=== PATIENT | male | born 1985 | race Two or more races ===

== ENCOUNTER 2016-06-26 23:27 | Inpatient (IN) | payer OTHER ==
[~2016-06-26] VITALS: Ht 175.3 cm; Wt 77.6 kg
[2016-06-26] MEDS ORDERED: ROCURONIUM BROMIDE 50 MG/5 ML IV ONE (23:41)
[2016-06-26] MEDS ORDERED: PROPOFOL 100 ML IV ONE (23:46)
[2016-06-26] MEDS ORDERED: IV SET PRIMARY 1 EA INFUS.SET MC ONE (23:46)
[2016-06-26] MEDS ORDERED: IV NS 0.9% 1,000 ML ONE (23:46)
[2016-06-26] MEDS ORDERED: ONDANSETRON HCL/PF 4 MG/2 ML VIAL ONE (23:46)
[2016-06-26] MEDS ORDERED: IV SET PRIMARY PUMP SET 1 EA INFUS.SET MC ONE (23:46)
[2016-06-26 23:54] LABS: KETONES,URINE 2+ (NEGATIVE); LEUKOCYTE ESTERASE ,URINE NEGATIVE (NEGATIVE); PH,URINE 5.5 (5.0-8.0)
[2016-06-26 23:57] LABS: ANION GAP 21 (5-14); CALCIUM, SERUM 8.6 mg/dL (8.5-10.1); CARBON DIOXIDE 21 mmol/L (21-32); CHLORIDE 101 mmol/L (98-107); CREATININE 0.8 mg/dL (0.6-1.3); GFR 112 mL/min (>60); GLUCOSE 184 mg/dL (74-106); POTASSIUM 3.8 mmol/L (3.5-5.1); SODIUM SERUM 139 mmol/L (136-145); UREA NITROGEN, BLOOD 11 mg/dL (7-18)
[2016-06-26 23:59] LABS: CANNABINOID, URINE POSITIVE (NEGATIVE); PHENCYCLIDINE SCREEN,URINE NEGATIVE (NEGATIVE)
[2016-06-27] VITALS (15 sets, daily range): BP systolic 102–188; BP diastolic 63–109
[2016-06-27] MEDS ORDERED: ONDANSETRON HCL/PF 4 MG/2 ML VIAL IVP ONE
[2016-06-27] MEDS ORDERED: IV NS 0.9% 500 ML BAG IV ONE ×2
[2016-06-27 00:03] LABS: ALANINE AMINOTRANSFERASE 71 U/L (12-78); ALBUMIN 4.4 g/dL (3.4-5.0); ASPARTATE AMINOTRANSFERASE 64 U/L (15-37); BILIRUBIN,DIRECT 0.1 mg/dL (0.0-0.2); BILIRUBIN,TOTAL 0.5 mg/dL (0.2-1.0); INDIRECT BILIRUBIN 0.4 mg/dL (0.0-1.1); SALICYLATE 3.3 mg/dL (2.8-20.0); TOTAL PROTEIN, SERUM 8.1 g/dL (6.4-8.2)
[2016-06-27 00:04] LABS: ACETAMINOPHEN 0 ug/ml (10-30)
[2016-06-27 00:14] LABS: ADD UA MICROSCOPIC YES
[2016-06-27 00:16] LABS: ADD URINE CULTURE NO; RBC,URINE NONE SEEN /HPF (0-2); WBC,URINE 0-2 /HPF (0-3)
[2016-06-27 00:25] LABS: BASOPHILS # (AUTO) 0.1 /CMM (0.0-0.2); BASOPHILS % (AUTO) 0.3 % (0.0-2.0); DIFF TOTAL % 100 %; EOSINOPHILS % (AUTO) 0.1 % (0.0-6.0); HEMATOCRIT 42 % (39-51); HEMOGLOBIN 14.2 g/dL (13.5-17.5); LYMPHOCYTES # (AUTO) 1.4 /CMM (0.8-4.8); LYMPHOCYTES % (AUTO) 7.5 % (20.0-44.0); MEAN CORPUSCULAR HEMOGLOBIN 33 PG (26.0-33.0); MEAN CORPUSCULAR HGB CONC 34 g/dl (31.0-36.0); MEAN CORPUSCULAR VOLUME 97 fL (80-96); MONOCYTES # (AUTO) 0.5 /CMM (0.1-1.30); NEUTROPHILS % (AUTO) 89.1 % (43.0-81.0); PLATELET COUNT (AUTO) 300 /CMM (150-450); RED BLOOD CELL COUNT(AUTO) 4.36 MIL/uL (4.5-6.0)
[2016-06-27] MEDS ORDERED: PROPOFOL 100 ML IV PRN ×2 (00:30→04:30)
[2016-06-27] MEDS ORDERED: ROCURONIUM BROMIDE 100 MG/10 ML VIAL IV ONE (00:30)
[2016-06-27 01:19] LABS: ABG BASE EXCESS -5.8 mmol/L; ABG HCO3 21.1 mmol/L; ABG PCO2 46.3 mmHg (35.0-45.0); ABG PH 7.276 (7.350-7.450); ABG PO2 236.4 mmHg (75.0-100.0); ABG TOTAL HEMOGLOBIN 14.8 G/dL (13.5-18.0); ALLEN TEST Pass; AaDO2 140.5 mmHg; O2Hb 96.5 % (94.0-97.0)
[2016-06-27] MEDS ORDERED: PROPOFOL 100 ML IV ONE ×2 (03:14→05:09)
[2016-06-27] MEDS ORDERED: ENOXAPARIN SODIUM 40 MG/0.4 ML DISP.SYRIN SQ SCH (04:30)
[2016-06-27] MEDS ORDERED: PANTOPRAZOLE 40 MG VIAL IV SCH (04:30)
[2016-06-27] MEDS ORDERED: IV 1/2NS 1000 ML 1,000 ML IV PRN (04:30)
[2016-06-27] MEDS ORDERED: ACETAMINOPHEN 650 MG/SUPP.RECT RC PRN (04:30)
[2016-06-27] MEDS ORDERED: IV 1/2NS 1000 ML 1,000 ML IV ONE (04:31)
[2016-06-27] MEDS ORDERED: ENOXAPARIN SODIUM 40 MG/0.4 ML DISP.SYRIN SQ ONE (04:31)
[2016-06-27] MEDS ORDERED: PANTOPRAZOLE 40 MG VIAL ONE (04:31)
[2016-06-27] MEDS ORDERED: IV SET PRIMARY PUMP SET 1 EA INFUS.SET MC ONE (04:31)
[2016-06-27 04:55] LABS: BASOPHILS % (AUTO) 0.1 % (0.0-2.0); DIFF TOTAL % 100 %; EOSINOPHILS % (AUTO) 0.1 % (0.0-6.0); HEMATOCRIT 43 % (39-51); HEMOGLOBIN 14.6 g/dL (13.5-17.5); LYMPHOCYTES # (AUTO) 0.9 /CMM (0.8-4.8); LYMPHOCYTES % (AUTO) 5.3 % (20.0-44.0); MEAN CORPUSCULAR HEMOGLOBIN 33 PG (26.0-33.0); MEAN CORPUSCULAR HGB CONC 34 g/dl (31.0-36.0); MEAN CORPUSCULAR VOLUME 97 fL (80-96); MONOCYTES # (AUTO) 0.8 /CMM (0.1-1.30); MONOCYTES % (AUTO) 5.3 % (2.0-12.0); NEUTROPHILS # (AUTO) 14.4 /CMM (1.8-8.9); NEUTROPHILS % (AUTO) 89.2 % (43.0-81.0); PLATELET COUNT (AUTO) 298 /CMM (150-450); RED BLOOD CELL COUNT(AUTO) 4.44 MIL/uL (4.5-6.0); WHITE BLOOD COUNT (AUTO) 16.1 K/uL (4.3-11.0)
[2016-06-27 05:33] LABS: ALBUMIN 4.5 g/dL (3.4-5.0); BILIRUBIN,TOTAL 0.9 mg/dL (0.2-1.0); CALCIUM, SERUM 8.9 mg/dL (8.5-10.1); CREATININE 0.7 mg/dL (0.6-1.3); POTASSIUM 4.6 mmol/L (3.5-5.1); TOTAL PROTEIN, SERUM 8.2 g/dL (6.4-8.2)
[2016-06-27] MEDS ORDERED: LORAZEPAM INJ 2 MG/ML VIAL ONE (06:09)
[2016-06-27] MEDS ORDERED: LORAZEPAM INJ 2 MG/ML VIAL IV PRN (06:30)
[2016-06-27] MEDS ORDERED: LEVO500T15 PO (08:25)
[2016-06-27] MEDS ORDERED: METR500T PO (08:26)
[2016-06-27] MEDS ORDERED: PIPERACILLIN /TAZOBACTAM 3.375 G in IV D5W 50 ML IV SCH (10:00)
[2016-06-27] MEDS ORDERED: SECONDARY IV SET 1 EA INFUS.SET MC ONE (10:43)
[2016-06-28] MEDS ORDERED: PANTOPRAZOLE 40 MG VIAL IV SCH (09:00)
[2016-06-28] MEDS ORDERED: ENOXAPARIN SODIUM 40 MG/0.4 ML DISP.SYRIN SQ SCH (09:00)
== END 2016-06-27 14:00 | disposition home or self-care (01) | DRG 816 ==
LOC: ER 23:29 → ICU 06-27 02:02
PROVIDERS: ADMIT Internal Medicine; ATTEND Internal Medicine
PROC: 5A1935Z Respiratory Ventilation, Less than 24 Consecutive Hours (ICD-10-PCS; principal; 2016-06-27)
PROC: 0BH17EZ Insertion of Endotracheal Airway into Trachea, Via Natural or Artificial Opening (ICD-10-PCS; principal; 2016-06-27)
DX: T65.91XA Toxic effect of unspecified substance, accidental (unintentional), initial encounter (principal); J69.0 Pneumonitis due to inhalation of food and vomit; G92 Toxic encephalopathy; Y92.89 Other specified places as the place of occurrence of the external cause; F17.210 Nicotine dependence, cigarettes, uncomplicated
CPT/HCPCS: 36415; 36600; 70450-TC; 71010-TC; 80048-TC; 80053-TC; 80076-TC; 80305; 81000-TC; 82803-TC; 82962-TC; 85025-TC; 87070-TC; 87081-TC; 94002-TC; 94640-TC; 99082-TC; A4606; C9113; G0480; G6039-TC; J1650; J2060; J2405; J2543; J3490; J7030; J7060; Z7610

== ENCOUNTER 2017-11-18 21:44 | Emergency (ER) | payer OTHER ==
[~2017-11-18] VITALS: Ht 177.8 cm; Wt 77.1 kg
[~2017-11-18 21:44] MED LIST: LEVO500T75 PO; METR500T PO
--- NOTE | 2017-11-18 21:44 | NUR ---
PT BB C/O FLU LIKE SYMPTOMS X3 DAYS. CHILLS/SWEATS. PT IS FEBRILE ON ARRIVAL TO ER. VSS NAD A/OX4 ABLE TO MAKE NEEDS KNOWN. WILL CONTINUE TO MONITOR FOR ANY CHANGES DURING THE SHIFT.
--- NOTE | 2017-11-18 21:45 | NUR ---
ER MD MONTIEL AT BEDSIDE
[2017-11-18] MEDS ORDERED: KETOROLAC TROMETHAMINE INJ 30 MG/ML VIAL ONE (22:55)
[2017-11-18] MEDS ORDERED: ACETAMINOPHEN ES 500 MG TABLET ONE (22:56)
[2017-11-18] MEDS ORDERED: KETOROLAC TROMETHAMINE INJ 30 MG/ML VIAL IV ONE (23:00)
[2017-11-18] MEDS ORDERED: IV NS 0.9% 1,000 ML BAG IV ONE (23:00)
[2017-11-18] MEDS ORDERED: ACETAMINOPHEN ES 500 MG TABLET PO ONE (23:00)
[2017-11-18 23:19] LABS: BASOPHILS % (AUTO) 0.7 % (0.0-2.0); EOSINOPHILS % (AUTO) 0.6 % (0.0-6.0); HEMATOCRIT 44 % (39-51); HEMOGLOBIN 15.2 g/dL (13.5-17.5); LYMPHOCYTES # (AUTO) 1.1 /CMM (0.8-4.8); LYMPHOCYTES % (AUTO) 27.5 % (20.0-44.0); MEAN CORPUSCULAR HEMOGLOBIN 34 PG (26.0-33.0); MEAN CORPUSCULAR HGB CONC 34 g/dl (31.0-36.0); MEAN CORPUSCULAR VOLUME 98 fL (80-96); MONOCYTES # (AUTO) 0.7 /CMM (0.1-1.30); MONOCYTES % (AUTO) 18.4 % (2.0-12.0); NEUTROPHILS # (AUTO) 2.1 /CMM (1.8-8.9); NEUTROPHILS % (AUTO) 52.8 % (43.0-81.0); PLATELET COUNT (AUTO) 171 /CMM (150-450); RDW COEFFICIENT OF VARIATION 13.3 (11.5-15.0); RED BLOOD CELL COUNT(AUTO) 4.51 MIL/uL (4.5-6.0)
[2017-11-18 23:25] LABS: CALCIUM, SERUM 8.9 mg/dL (8.5-10.1); CREATININE 0.9 mg/dL (0.6-1.3); POTASSIUM 3.7 mmol/L (3.5-5.1)
[2017-11-18 23:31] LABS: INR 0.84 (0.87-1.13)
[2017-11-18 23:32] LABS: ALBUMIN 4.2 g/dL (3.4-5.0); BILIRUBIN,DIRECT 0.1 mg/dL (0.0-0.2); BILIRUBIN,TOTAL 0.3 mg/dL (0.2-1.0); TOTAL PROTEIN, SERUM 8.2 g/dL (6.4-8.2)
[2017-11-18 23:55] LABS: LYMPHOCYTES % (MANUAL) 31 % (16-48); MONOCYTES % (MANUAL) 19 % (0-11.0); NEUTROPHILS % (MANUAL) 50 (42-76)
--- NOTE | 2017-11-19 00:26 | NUR ---
URINE COLLECTED CALLED LAB FOR ANIMAL RESCUER
[2017-11-19 00:34] VITALS: BP 135/78
[2017-11-19 00:45] LABS: APPEARANCE,URINE CLEAR (CLEAR); BILIRUBIN,URINE NEGATIVE (NEGATIVE); BLOOD, URINE TRACE Ery/uL (NEGATIVE); COLOR,URINE DARK YELLO (YELLOW); KETONES,URINE NEGATIVE (NEGATIVE); LEUKOCYTE ESTERASE ,URINE NEGATIVE (NEGATIVE); NITRITE, URINE NEGATIVE (NEGATIVE); PROTEIN,URINE 1+ mg/dl (NEGATIVE); UGLUCOSE NEGATIVE (NEGATIVE); UROBILINOGEN,URINE 0.2 EU/dL (0.2)
[2017-11-19 00:55] LABS: BACTERIA,URINE Few /HPF (None Seen); MUCUS,URINE Moderate /LPF (None Seen); SQUAMOUS EPITHELIAL CELL,UR Rare /HPF (None Seen); WBC,URINE 0-2 /HPF (0-3)
== END 2017-11-19 00:36 | disposition home or self-care (01) ==
LOC: ER 21:44
DX: T51.91XA Toxic effect of unspecified alcohol, accidental (unintentional), initial encounter (principal); R50.9 Fever, unspecified; Y92.89 Other specified places as the place of occurrence of the external cause; F17.200 Nicotine dependence, unspecified, uncomplicated; R74.0 Nonspecific elevation of levels of transaminase and lactic acid dehydrogenase [LDH]; Z71.6 Tobacco abuse counseling
CPT/HCPCS: 36415; 71045; 80048; 80074; 80076; 81001; 85025; 85730; 86706; 86709; 87040 ×2; 87804 ×2; 93005; 96361; 96374; 99285; 99406; A4606; J1885; J7030; Z7610; 81000-TC; 87400

== ENCOUNTER 2019-02-01 14:55 | Emergency (ER) | payer OTHER ==
[~2019-02-01] VITALS: Ht 175.3 cm; Wt 79.4 kg
[2019-02-01] MEDS ORDERED: IV NS 0.9% 1,000 ML BAG IV ONE (15:30)
--- NOTE | 2019-02-01 15:30 | NUR ---
PT REC'D TO ER C/O PAIN RT LOWER ABD 10/27 HAS HAD THIS PAIBN FOR 6 MONTHS . IV SATRTED 20G RT AC LABS AND UA SENT TO LAB
[2019-02-01 15:40] LABS: BASOPHILS % (AUTO) 0.7 % (0.0-2.0); EOSINOPHILS % (AUTO) 1.8 % (0.0-6.0); HEMATOCRIT 43 % (39-51); HEMOGLOBIN 14.9 g/dL (13.5-17.5); LYMPHOCYTES % (AUTO) 30.8 % (20.0-44.0); MEAN CORPUSCULAR HGB CONC 34 g/dl (31.0-36.0); MEAN CORPUSCULAR VOLUME 99 fL (80-96); MONOCYTES # (AUTO) 0.7 /CMM (0.1-1.30); MONOCYTES % (AUTO) 11.5 % (2.0-12.0); NEUTROPHILS # (AUTO) 3.5 /CMM (1.8-8.9); NEUTROPHILS % (AUTO) 55.2 % (43.0-81.0); PLATELET COUNT (AUTO) 204 /CMM (150-450); RED BLOOD CELL COUNT(AUTO) 4.37 MIL/uL (4.5-6.0); WHITE BLOOD COUNT (AUTO) 6.4 K/uL (4.3-11.0)
[2019-02-01 15:42] LABS: APPEARANCE,URINE CLEAR (CLEAR); BILIRUBIN,URINE NEGATIVE (NEGATIVE); BLOOD, URINE NEGATIVE Ery/uL (NEGATIVE); KETONES,URINE NEGATIVE (NEGATIVE); LEUKOCYTE ESTERASE ,URINE NEGATIVE (NEGATIVE); NITRITE, URINE NEGATIVE (NEGATIVE); PROTEIN,URINE NEGATIVE (NEGATIVE); UGLUCOSE NEGATIVE (NEGATIVE); UROBILINOGEN,URINE 0.2 EU/dL (0.2)
[2019-02-01 15:47] LABS: CALCIUM, SERUM 9.1 mg/dL (8.5-10.1); CREATININE 0.7 mg/dL (0.6-1.3); POTASSIUM 3.9 mmol/L (3.5-5.1)
[2019-02-01 15:49] LABS: COLOR,URINE COLORLESS (YELLOW)
[2019-02-01 15:53] LABS: ALBUMIN 4.4 g/dL (3.4-5.0); BILIRUBIN,DIRECT 0.2 mg/dL (0.0-0.2); BILIRUBIN,TOTAL 0.6 mg/dL (0.2-1.0); TOTAL PROTEIN, SERUM 8.1 g/dL (6.4-8.2)
--- NOTE | 2019-02-01 16:09 | NUR ---
IV NS BOLUS GIVEN PER MD ORDER VSS FAMILY AT BEDSIDE
--- NOTE | 2019-02-01 16:15 | NUR ---
Ashish holland in [facility] - 02/01/19 at 1616 by NOAH MEDARDO MONTIEL PATIENT BP 201/100 NO MED AT HIS TIME
[2019-02-01 16:52] VITALS: BP 106/70
== END 2019-02-01 16:54 | disposition home or self-care (01) ==
LOC: ER 14:56
DX: R10.31 Right lower quadrant pain (principal); R74.0 Nonspecific elevation of levels of transaminase and lactic acid dehydrogenase [LDH]; R11.2 Nausea with vomiting, unspecified; F10.10 Alcohol abuse, uncomplicated; F17.200 Nicotine dependence, unspecified, uncomplicated; Y90.9 Presence of alcohol in blood, level not specified
CPT/HCPCS: 36415; 74176; 80048; 80076; 81001; 83690; 85025; 99284; J7030; 81000-TC

== ENCOUNTER 2023-08-26 14:20 | Emergency (ER) | payer OTHER ==
[~2023-08-26] VITALS: Ht 175.3 cm; Wt 86.2 kg
[~2023-08-26 14:20] MED LIST changes: +LEVO500T23 PO; -LEVO500T75 PO
[2023-08-26] MEDS ORDERED: ONDANSETRON HCL/PF 4 MG/2 ML VIAL ONE (15:54)
[2023-08-26] MEDS ORDERED: KETOROLAC TROMETHAMINE 15 MG/ML VIAL ONE (15:54)
[2023-08-26] MEDS: IV NS 0.9% 1,000 ML BAG IV ONE (16:00)
[2023-08-26 16:01] LABS: BASOPHILS % (AUTO) 0.4 % (0.0-2.0); EOSINOPHILS # (AUTO) 0.1 K/uL (0.0-0.7); EOSINOPHILS % (AUTO) 1.1 % (0.0-6.0); HEMATOCRIT 42 % (39-51); HEMOGLOBIN 14.1 g/dL (13.5-17.5); LYMPHOCYTES # (AUTO) 1.4 K/uL (0.8-4.8); LYMPHOCYTES % (AUTO) 25.4 % (20.0-44.0); MEAN CORPUSCULAR HEMOGLOBIN 32 PG (26.0-33.0); MEAN CORPUSCULAR HGB CONC 34 g/dl (31.0-36.0); MEAN CORPUSCULAR VOLUME 95 fL (80-96); MONOCYTES # (AUTO) 0.8 K/uL (0.1-1.30); MONOCYTES % (AUTO) 14.4 % (2.0-12.0); NEUTROPHILS # (AUTO) 3.2 K/uL (1.8-8.9); NEUTROPHILS % (AUTO) 58.7 % (43.0-81.0); PLATELET COUNT (AUTO) 260 K/uL (150-450); RED BLOOD CELL COUNT(AUTO) 4.37 MIL/uL (4.5-6.0); RED CELL DISTRIBUTION WIDTH 13.7 % (11.5-15.0); WHITE BLOOD COUNT (AUTO) 5.5 K/uL (4.3-11.0)
[2023-08-26] MEDS: ONDANSETRON HCL/PF 4 MG/2 ML VIAL IVP ONE (16:02)
[2023-08-26] MEDS: KETOROLAC TROMETHAMINE 15 MG/ML VIAL IV ONE (16:02)
[2023-08-26 16:13] LABS: ALBUMIN 3.9 g/dL (3.4-5.0); BILIRUBIN,DIRECT 0.1 mg/dL (0.0-0.2); BILIRUBIN,TOTAL 0.4 mg/dL (0.2-1.0); CALCIUM, SERUM 8.9 mg/dL (8.5-10.1); CREATININE 0.6 mg/dL (0.6-1.3); TOTAL PROTEIN, SERUM 8.1 g/dL (6.4-8.2)
[2023-08-26 17:40] LABS: APPEARANCE,URINE Slightly Cloudy (CLEAR); BILIRUBIN,URINE SMALL (NEGATIVE); BLOOD, URINE Negative Ery/uL (NEGATIVE); COLOR,URINE DARK YELLOW (YELLOW); KETONES,URINE 15 mg/dL (NEGATIVE); LEUKOCYTE ESTERASE ,URINE Negative (NEGATIVE); NITRITE, URINE Negative (NEGATIVE); PH,URINE 5.5 (5.0-8.0); PROTEIN,URINE Trace mg/dl (NEGATIVE); UGLUCOSE Negative (NEGATIVE); UROBILINOGEN,URINE 0.2 EU/dL (0.2)
[2023-08-26 17:58] VITALS: BP 134/82; TEMP 98.2; O2SAT 97
[2023-08-26 19:11] LABS: ADD URINE CULTURE NO; BACTERIA,URINE Few /HPF (None Seen); RBC,URINE 0-2 /HPF (0-2); SQUAMOUS EPITHELIAL CELL,UR Rare /HPF (None Seen); WBC,URINE 0-2 /HPF (0-3)
[2023-08-26 19:12] LABS: MUCUS,URINE Many /LPF (None Seen)
== END 2023-08-26 17:59 | disposition home or self-care (01) ==
LOC: ER 14:25
DX: R10.11 Right upper quadrant pain (principal); K76.0 Fatty (change of) liver, not elsewhere classified; F10.10 Alcohol abuse, uncomplicated; Y90.9 Presence of alcohol in blood, level not specified
CPT/HCPCS: 99284; 74176; 96360; 76700; 85025; 80048; 83690; 80076; 81001; 36415; J7030; J1885; J2405